=== PATIENT | male | born 1960 | race Caucasian/White ===

== ENCOUNTER 2020-12-09 14:12 | Inpatient (IN) ==
[2020-12-09 14:29] VITALS: BMI 22.1
[2020-12-09 15:31] LABS: BASOPHILS % (AUTO) 0.3 % (0.2-1.0); EOSINOPHILS # (AUTO) 0.1 x10^3/uL (0.0-0.2); EOSINOPHILS % (AUTO) 0.5 % (0.9-2.9); HEMATOCRIT 37.1 % (42.0-54.0); HEMOGLOBIN 12.3 g/dL (13.5-18.0); LYMPHOCYTES # (AUTO) 1.6 X10^3/uL (1.3-2.9); LYMPHOCYTES % (AUTO) 11.8 % (21.0-51.0); MEAN CORPUSCULAR HEMOGLOBIN 27.8 pg (27.0-34.0); MEAN CORPUSCULAR VOLUME 84.1 fL (80.0-100.0); MEAN PLATELET VOLUME 9.2 fL (7.4-11.0); MONOCYTES # (AUTO) 1.3 x10^3/uL (0.3-0.8); MONOCYTES % (AUTO) 9.5 % (0.0-13.0); NEUTROPHILS # (AUTO) 10.8 x10^3/uL (2.2-4.8); NEUTROPHILS % (AUTO) 77.9 % (42.0-75.0); PLATELET COUNT 312 X10^3/uL (150.0-450.0); RED BLOOD COUNT 4.41 X10^6/uL (4.7-6.0); RED CELL DISTRIBUTION WIDTH 16.2 % (11.6-16.5); WHITE BLOOD COUNT 13.9 X10^3/uL (3.6-10.0)
[2020-12-09] MEDS ORDERED: LR 1000 ML IV 1,000 ML IV ONE ×2 (15:49→15:55)
[2020-12-09 15:51] LABS: ALANINE AMINOTRANSFERASE 28 Units/L (12-78); ALBUMIN 2.8 g/dL (3.4-5.0); ALKALINE PHOSPHATASE 120 Units/L (46-116); ASPARTATE AMINO TRANSFERASE 40 Units/L (15-37); BLOOD UREA NITROGEN 40 mg/dL (7-18); CARBON DIOXIDE 32.7 mmol/L (21-32); CHLORIDE 101 mmol/L (98-107); CREATININE 2.14 mg/dL (0.70-1.30); SODIUM 140 mmol/L (136-145); TOTAL PROTEIN 6.4 g/dL (6.4-8.2); TSH (3RD GENERATION) 0.744 uIU/mL (0.358-3.74); eGFR NON BLACK RACES 34 (>60)
[2020-12-09 15:58] LABS: CALCIUM 15.5 mg/dL (8.5-10.1); COR CA(FOR HYPOALB) 16.5 mg/dL (8.5-10.1)
[2020-12-09] MEDS ORDERED: NS 1000 ML 1,000 ML IV ONE ×2 (16:05→17:30)
[2020-12-09] MEDS ORDERED: NS 1000 ML 1,000 ML ONE ×2 (16:06→21:09)
--- NOTE | 2020-12-09 16:22 | DR.GENAD ---
HPI Time Seen Time Seen by Provider: 12/09/20 14:43 PCP Primary Care Physician: DR ZHU HPI Comment HPI Comment: Pt accomnied by .According to pt and her, pt was well before Jun 2020.has noticed hoarseness and problem with swallowing food .has lost approx 50 pounds since jun.has had EGD done .however according to he was more confused today and not been eating and drinking much .she is concerned and brought him to ER for evaluation Complaint/Symptoms Chief Complaint Doctors Comments: weight loss Chief Complaint:: PT C/O OF NOT BEING ABLE TO EAT FOR ABOUT 3 MONTHS EXCEPT DRINKING SOME LIQUIDS BUT FOR PAST WEEK PT HASN'T TAKEN ANYTHING BY MOUTH EXCEPT WATER. PT HAS HAD PERIODS OF DISORIENTATION AND DIZZINESS AND GENERALIZED FATIGUED.PT ALSO HAS C/O FEELING LIKE HE NEEDS TO HAVE A BM BUT HASN'T HAD A NORMAL BM IN 2 MONTHS. Self Treatment fo Chief Complaint: PT STATES THAT HE FEELS FOOD GETS STUCK IN HIS THROAT COVID-19 Coronavirus risk:travel/contact w/high risk person: No Has patient experienced Coronavirus symptoms: No Nurses notes reviewed Nurses Notes Review: Yes Source History Provided: Patient Mode of Arrival Mode of Arrival: Ambulatory Timing Onset of Chief Complaint: 12/09/20 Duration Duration: Since Onset Duration: Weeks Severity Severity: Severe PMH PMH Past Medical History: Yes Past Medical History: Diabetes and Hypertension Past Surgical History: Yes Surgical History: Appendectomy and Cholecystectomy Family History History of Family Medical Conditions: Yes Family Medical History: Hypertension Social History Does patient currently use any type of tobacco product: No Have you used tobacco products in the last 12 months: No How many years tobacco product used: 40 Does any household member use tobacco: No Alcohol Use: Rarely Do you use any recreational Drugs:: No Lives With: Family Lives Where: Home Travel Risk Coronavirus risk:travel/contact w/high risk person: No Has patient experienced Coronavirus symptoms: No Infectious screening In the last 2 months have you had wt loss of >10#?: NO Have you had fever, night sweats or hemotysis?: No Have you traveled outside the country in the last 6 months?: No Isolation: Standard ROS Review of Systems Constitutional: Malaise, Fatigue and Loss of Appetite Eyes: No Symptoms Reported ENTM: No Symptoms Reported Respiratoy: Short of Breath Cardiovascular: No Symptoms Reported Gastrointestinal/Abdominal: Other (weight loss ) Genitourinary: No Symptoms Reported Neurological: Weakness Musculoskeletal: No Symptoms Reported Hematologic/Lymphatic: No Symptoms Reported Endocrine: Unexplained Weight Loss Psychiatric: Anxiety PE Vital Signs Vitals: Temperature 98.8 F Pulse Rate 101 Respiratory Rate 20 Blood Pressure 106/74 O2 Sat by Pulse Oximetry 96 General Limitations: No Limitations General Appearance: Alert and Cachectic Head Head Exam: Atraumatic Eyes Eye exam: PERRL and Other (pallor) ENT ENT Exam: Mucous Membranes Dry Neck Neck Exam: Normal Inspection and Full ROM Chest Chest Inspection: Symmetric Chest Wall Rise Respiratory Respiratory Exam: Bilateral: Crackles and Bilateral: Decreased Breath Sounds Cardiovascular Cardiovascular Exam: Tachycardia, +S1 and +S2 Abdominal Exam Abdominal Exam: Normal Bowel Sounds, Soft and Tenderness Extremities Extremities Exam: Full ROM Neurologic Neurological Exam: Alert and Oriented X3 Psychiatric Psychiatric Exam: Depressed and Flat Affect Skin Skin Exam: Dry and Pallor MDM Additional Information Findings: unexplained weight loss,cachexia,tobacco user COURSE Treatment Treatment: CBC,CMP,TSH ,CXR CT OF HEAD ROR Labs Reviewed Laboratory Results Reviewed?: Yes Result Diagrams: 12/09/20 15:13 12/09/20 15:13 Laboratory: WBC 13.9 X10^3/uL (3.6-10.0) H 12/09/20 15:13 RBC 4.41 X10^6/uL (4.7-6.0) L 12/09/20 15:13 Hgb 12.3 g/dL (13.5-18.0) L 12/09/20 15:13 Hct 37.1 % (42.0-54.0) L 12/09/20 15:13 MCV 84.1 fL (80.0-100.0) 12/09/20 15:13 MCH 27.8 pg (27.0-34.0) 12/09/20 15:13 MCHC 33.0 g/dL (33.0-35.0) 12/09/20 15:13 RDW 16.2 % (11.6-16.5) 12/09/20 15:13 Plt Count 312 X10^3/uL (150.0-450.0) 12/09/20 15:13 MPV 9.2 fL (7.4-11.0) 12/09/20 15:13 Neut % (Auto) 77.9 % (42.0-75.0) H 12/09/20 15:13 Lymph % (Auto) 11.8 % (21.0-51.0) L 12/09/20 15:13 [place] % (Auto) 9.5 % (0.0-13.0) 12/09/20 15:13 Eos % (Auto) 0.5 % (0.9-2.9) L 12/09/20 15:13 Baso % (Auto) 0.3 % (0.2-1.0) 12/09/20 15:13 Neut # (Auto) 10.8 x10^3/uL (2.2-4.8) H 12/09/20 15:13 Lymph # (Auto) 1.6 X10^3/uL (1.3-2.9) 12/09/20 15:13 [place] # (Auto) 1.3 x10^3/uL (0.3-0.8) H 12/09/20 15:13 Eos # (Auto) 0.1 x10^3/uL (0.0-0.2) 12/09/20 15:13 Baso # (Auto) 0.0 X10^3/uL (0.0-0.1) 12/09/20 15:13 Absolute Nucleated RBC 0.0 /100WBC 12/09/20 15:13 Sodium 140 mmol/L (136-145) 12/09/20 15:13 Corrected Sodium TNP 12/09/20 15:13 Potassium 3.2 mmol/L (3.5-5.1) L 12/09/20 15:13 Chloride 101 mmol/L (98-107) 12/09/20 15:13 Carbon Dioxide 32.7 mmol/L (21-32) H 12/09/20 15:13 BUN 40 mg/dL (7-18) H 12/09/20 15:13 Creatinine 2.14 mg/dL (0.70-1.30) H 12/09/20 15:13 Est GFR (MDRD) Af Amer 41 (>60) L 12/09/20 15:13 Est GFR (MDRD) Non-Af 34 (>60) L 12/09/20 15:13 Glucose 84 mg/dL (65-99) 12/09/20 15:13 Calcium 15.5 mg/dL (8.5-10.1) H* 12/09/20 15:13 Corrected Calcium 16.5 mg/dL (8.5-10.1) H 12/09/20 15:13 Total Bilirubin 1.70 mg/dL (0.2-1.0) H 12/09/20 15:13 Direct Bilirubin 0.30 mg/dL (0-0.2) H 12/09/20 15:13 AST 40 Units/L (15-37) H 12/09/20 15:13 ALT 28 Units/L (12-78) 12/09/20 15:13 Alkaline Phosphatase 120 Units/L (46-116) H 12/09/20 15:13 Total Protein 6.4 g/dL (6.4-8.2) 12/09/20 15:13 Albumin 2.8 g/dL (3.4-5.0) L 12/09/20 15:13 Globulin 3.6 g/dL (2.5-4.5) 12/09/20 15:13 Albumin/Globulin Ratio 0.8 Ratio (1.1-2.1) L 12/09/20 15:13 TSH 3rd Generation 0.744 uIU/mL (0.358-3.74) 12/09/20 15:13 HIV-1 Ab Confirm (Blot) Cancelled 12/09/20 15:15 HIV 1&2 Antibody Screen Cancelled 12/09/20 15:15 Other Results Comments: INDIRECT BILI ELEVATED ,HYPOKALEMIA,ACUTE RENAL FAILURE ,HYPERCALCEMIA ,WEIGHT LOSS ,CACHEXIA ,ELEVATED WBC Opioid Opioid Risk Tool Age (Ashish box if 16-45): No History of Preadolescent Sexual Abuse: No Total: 0 Total Score Risk Category: Low Risk Copyright: Adriano ROBLES predicting aberrant behaviors Diagnosis Discharge Problem: Hypercalcemia, Cachexia, Abnormal liver function Acute renal failure Qualifiers: Acute renal failure type: unspecified Qualified Code(s): N17.9 - Acute kidney failure, unspecified Anemia Qualifiers: Anemia type: unspecified type Qualified Code(s): D64.9 - Anemia, unspecified ADDITIONAL NOTES Additional Notes Additional Notes: Pt has hypercalcemia, acute renal failure, cachexia ,hypokalemia ,anemia. spoke with Dr Zhu .Agreed to admit patient
--- NOTE | 2020-12-09 16:23 | CT ---
HISTORYDIZZINESS, FATIGUE, UNABLE TO X 4 DAYS, CONFUSIONSTUDYBRAIN W/O CONCOMPARISONNone available.TECHNIQUEAxial non-contrast images of the head were obtained with coronal and sagittal reformats provided.Radiation dose: 1391.10 mGy-cm total DLPFINDINGSNo abnormal areas of acute attenuation in the brain parenchyma.Bonilla-white differentiation remains intact.No intracranial, extra-axial, fluid collection.No hemorrhage.Mild periventricular chronic microvascular disease.No mass, mass effect or midline shift.Age related brain parenchymal global atrophy.No ventriculomegaly.No acute fracture.Sinuses are well aerated.Mastoid air cells are well aerated.Globes and intra-orbital contents are unremarkable.IMPRESSIONNo acute intracranial abnormality identified.Electronically signed by: Shahid Winters (Dec 09, 2020 16:20:52)
--- NOTE | 2020-12-09 19:02 | RAD ---
HISTORYDIZZINESS, FATIGUE, UNABLE TO X 4 DAYS, CONFUSIONSTUDYCHEST, 1 VIEWCOMPARISONSeptember 2018TECHNIQUEChest radiographic imaging 1 view AP projectionFINDINGSNo cardiomegalyInterval development of mass in the medial aspect of the left upper lobe, abutting the mediastinum, measuring 11.3 x 7.2 cm.No focal infiltrate.No acute osseous abnormality.No pleural effusion.No pneumothorax.Soft tissues are unremarkable.No acute osseous abnormality.IMPRESSIONInterval development of mass in the medial aspect of the left upper lobe, abutting the mediastinum, measuring 11.3 x 7.2 cm. Recommend a chest CT with contrast for further characterization.Electronically signed by: Shahid Winters (Dec 09, 2020 18:59:52)
[2020-12-09 20:06] LABS: BLOOD UREA NITROGEN 38 mg/dL (7-18); CARBON DIOXIDE 33.6 mmol/L (21-32); CHLORIDE 105 mmol/L (98-107); CREATININE 1.95 mg/dL (0.70-1.30); SODIUM 143 mmol/L (136-145); eGFR NON BLACK RACES 38 (>60)
[2020-12-09 20:15] LABS: CALCIUM 14.3 mg/dL (8.5-10.1)
[2020-12-09] MEDS: NS 1000 ML 1,000 ML IV SCH (21:30)
--- NOTE | 2020-12-09 21:34 | RAD ---
HISTORYUNINTENTIONAL WEIGHT LOSS, CONSTIPATION Relevant Clinical InformationSTUDYACUTE ABDOMEN SERIESCOMPARISONChest radiograph 12/09/2020FINDINGSThe trachea is midline. The cardiac silhouette is [unremarkable]. [Medial left upper lobe mass abutting the mediastinum again noted. The right lung is clear. No pleural effusion or pneumothorax.] [The bony thorax is unremarkable].Flat plate and upright evaluation of the abdomen demonstrates a [normal bowel gas pattern]. There is a moderate amount of fecal material throughout the colon. There are multiple surgical clips in the right upper quadrant. There is a single surgical clip in the left pelvis. There is no pneumoperitoneum. No pathological soft tissue mass or calcification can be observed. The bony structures are grossly intact.IMPRESSION1. [Left upper lobe mass]2. [No evidence for acute abdominal pathology identified.]Electronically signed by: Ronald Duran (Dec 09, 2020 21:31:56)
[2020-12-10] MEDS: NS 1000 ML 1,000 ML IV SCH ×4 (04:45→23:08)
[2020-12-10 06:51] LABS: BASOPHILS # (AUTO) 0.1 X10^3/uL (0.0-0.1); BASOPHILS % (AUTO) 0.7 % (0.2-1.0); EOSINOPHILS # (AUTO) 0.1 x10^3/uL (0.0-0.2); EOSINOPHILS % (AUTO) 0.7 % (0.9-2.9); HEMOGLOBIN 11.8 g/dL (13.5-18.0); LYMPHOCYTES # (AUTO) 1.2 X10^3/uL (1.3-2.9); MEAN CORPUSCULAR HEMOGLOBIN 27.8 pg (27.0-34.0); MEAN CORPUSCULAR HGB CONC 32.8 g/dL (33.0-35.0); MEAN CORPUSCULAR VOLUME 84.9 fL (80.0-100.0); MEAN PLATELET VOLUME 10.3 fL (7.4-11.0); MONOCYTES % (AUTO) 8.7 % (0.0-13.0); NEUTROPHILS # (AUTO) 9.5 x10^3/uL (2.2-4.8); NEUTROPHILS % (AUTO) 79.9 % (42.0-75.0); PLATELET COUNT 255 X10^3/uL (150.0-450.0); RED BLOOD COUNT 4.24 X10^6/uL (4.7-6.0); RED CELL DISTRIBUTION WIDTH 16.2 % (11.6-16.5); WHITE BLOOD COUNT 11.9 X10^3/uL (3.6-10.0)
[2020-12-10 07:07] LABS: ALANINE AMINOTRANSFERASE 26 Units/L (12-78); ALBUMIN 2.7 g/dL (3.4-5.0); ALKALINE PHOSPHATASE 116 Units/L (46-116); ASPARTATE AMINO TRANSFERASE 32 Units/L (15-37); BLOOD UREA NITROGEN 35 mg/dL (7-18); CARBON DIOXIDE 29.8 mmol/L (21-32); CHLORIDE 105 mmol/L (98-107); COR CA(FOR HYPOALB) 15.3 mg/dL (8.5-10.1); CREATININE 1.85 mg/dL (0.70-1.30); SODIUM 144 mmol/L (136-145); TOTAL PROTEIN 6.3 g/dL (6.4-8.2); eGFR NON BLACK RACES 40 (>60)
[2020-12-10 07:20] LABS: CALCIUM 14.3 mg/dL (8.5-10.1)
[2020-12-10] MEDS ORDERED: POTASSIUM CHL 60 MEQ/NS 0.45% 500 ML IV PRN (08:53)
[2020-12-10] MEDS ORDERED: MICRO K EXTEN CAP 10 MEQ PO PRN (08:53)
[2020-12-10] MEDS ORDERED: POTASSIUM CHLORIDE LIQ 20 MEQ UDC PO PRN (08:53)
[2020-12-10] MEDS ORDERED: KLOR-CON PO PRN (08:53)
[2020-12-10] MEDS ORDERED: K-DUR TAB 20 MEQ PO PRN (08:53)
[2020-12-10] MEDS ORDERED: POTASSIUM CHL 40 MEQ/NS 0.45% 500 ML IV PRN (08:53)
[2020-12-10] MEDS: K-RIDER 10 MEQ/NS 100 ML 10 MEQ/100 ML BAG IV PRN ×4 (09:49→18:08)
[2020-12-10] MEDS ORDERED: NS 500 ML IV 500 ML with AREDIA 90 MG IV ONE ×2 (10:00)
[2020-12-10] MEDS ORDERED: COLACE CAP 100 MG PO STA (12:58)
[2020-12-10] MEDS: MAGNESIUM SULFATE 1 GRAM/100 mL PREMIX 1 GM/100 ML BAG IV PRN ×2 (15:08→16:51)
[2020-12-10] MEDS ORDERED: COLACE CAP 100 MG PO ONE (15:13)
[2020-12-11 05:01] LABS: BASOPHILS # (AUTO) 0.1 X10^3/uL (0.0-0.1); BASOPHILS % (AUTO) 0.5 % (0.2-1.0); EOSINOPHILS # (AUTO) 0.1 x10^3/uL (0.0-0.2); EOSINOPHILS % (AUTO) 0.9 % (0.9-2.9); HEMATOCRIT 33.9 % (42.0-54.0); HEMOGLOBIN 11.2 g/dL (13.5-18.0); LYMPHOCYTES # (AUTO) 1.1 X10^3/uL (1.3-2.9); MEAN CORPUSCULAR HEMOGLOBIN 27.9 pg (27.0-34.0); MEAN CORPUSCULAR VOLUME 84.5 fL (80.0-100.0); MEAN PLATELET VOLUME 9.8 fL (7.4-11.0); MONOCYTES # (AUTO) 0.9 x10^3/uL (0.3-0.8); MONOCYTES % (AUTO) 8.4 % (0.0-13.0); NEUTROPHILS % (AUTO) 80.2 % (42.0-75.0); PLATELET COUNT 277 X10^3/uL (150.0-450.0); RED BLOOD COUNT 4.01 X10^6/uL (4.7-6.0); RED CELL DISTRIBUTION WIDTH 16.5 % (11.6-16.5); WHITE BLOOD COUNT 11.2 X10^3/uL (3.6-10.0)
[2020-12-11] MEDS: NS 1000 ML 1,000 ML IV SCH (05:21)
[2020-12-11 05:22] LABS: ALANINE AMINOTRANSFERASE 26 Units/L (12-78); ALBUMIN 2.5 g/dL (3.4-5.0); ALKALINE PHOSPHATASE 116 Units/L (46-116); ASPARTATE AMINO TRANSFERASE 28 Units/L (15-37); BLOOD UREA NITROGEN 27 mg/dL (7-18); CARBON DIOXIDE 31.5 mmol/L (21-32); CHLORIDE 108 mmol/L (98-107); COR CA(FOR HYPOALB) 15.2 mg/dL (8.5-10.1); CREATININE 1.61 mg/dL (0.70-1.30); MAGNESIUM 1.9 mg/dL (1.7-2.9); SODIUM 148 mmol/L (136-145); TOTAL PROTEIN 5.9 g/dL (6.4-8.2); eGFR NON BLACK RACES 47 (>60)
[2020-12-11] MEDS: MAGNESIUM SULFATE 1 GRAM/100 mL PREMIX 1 GM/100 ML BAG IV PRN ×2 (05:53→11:29)
[2020-12-11] MEDS: LINZESS PO SCH (09:09)
[2020-12-11] MEDS: MIACALCIN INJ SC SCH ×2 (09:09→20:13)
[2020-12-11] MEDS: MIRALAX POWDER (1 DOSE 17 G) PO SCH ×2 (11:03→20:12)
[2020-12-11] MEDS: COLACE CAP 100 MG PO SCH ×2 (11:03→20:12)
[2020-12-11] MEDS: LR 1000 ML IV 1,000 ML IV SCH ×3 (11:03→17:58)
[2020-12-11] MEDS ORDERED: VSL#3 ONE (19:58)
[2020-12-12] MEDS: LR 1000 ML IV 1,000 ML IV SCH ×5 (00:35→20:34)
[2020-12-12 06:02] LABS: BASOPHILS % (AUTO) 0.1 % (0.2-1.0); EOSINOPHILS # (AUTO) 0.1 x10^3/uL (0.0-0.2); EOSINOPHILS % (AUTO) 1.3 % (0.9-2.9); HEMOGLOBIN 11.1 g/dL (13.5-18.0); LYMPHOCYTES # (AUTO) 0.8 X10^3/uL (1.3-2.9); LYMPHOCYTES % (AUTO) 7.8 % (21.0-51.0); MEAN CORPUSCULAR HEMOGLOBIN 28.5 pg (27.0-34.0); MEAN CORPUSCULAR HGB CONC 33.5 g/dL (33.0-35.0); MEAN CORPUSCULAR VOLUME 85.1 fL (80.0-100.0); MEAN PLATELET VOLUME 10.3 fL (7.4-11.0); MONOCYTES # (AUTO) 0.7 x10^3/uL (0.3-0.8); MONOCYTES % (AUTO) 6.1 % (0.0-13.0); NEUTROPHILS # (AUTO) 9.1 x10^3/uL (2.2-4.8); NEUTROPHILS % (AUTO) 84.7 % (42.0-75.0); PLATELET COUNT 217 X10^3/uL (150.0-450.0); RED BLOOD COUNT 3.88 X10^6/uL (4.7-6.0); RED CELL DISTRIBUTION WIDTH 16.6 % (11.6-16.5); WHITE BLOOD COUNT 10.8 X10^3/uL (3.6-10.0)
[2020-12-12 06:15] LABS: ALANINE AMINOTRANSFERASE 23 Units/L (12-78); ALBUMIN 2.4 g/dL (3.4-5.0); ALKALINE PHOSPHATASE 115 Units/L (46-116); ASPARTATE AMINO TRANSFERASE 29 Units/L (15-37); BLOOD UREA NITROGEN 19 mg/dL (7-18); CALCIUM 11.7 mg/dL (8.5-10.1); CARBON DIOXIDE 30.3 mmol/L (21-32); CHLORIDE 107 mmol/L (98-107); CREATININE 1.43 mg/dL (0.70-1.30); SODIUM 145 mmol/L (136-145); TOTAL PROTEIN 5.7 g/dL (6.4-8.2); eGFR NON BLACK RACES 54 (>60)
[2020-12-12] MEDS: MAGNESIUM SULFATE 1 GRAM/100 mL PREMIX 1 GM/100 ML BAG IV PRN (06:44)
[2020-12-12] MEDS: COLACE CAP 100 MG PO SCH ×2 (08:30→20:34)
[2020-12-12] MEDS: MIRALAX POWDER (1 DOSE 17 G) PO SCH ×2 (08:31→20:35)
[2020-12-12] MEDS: LINZESS PO SCH (08:31)
[2020-12-12] MEDS: MIACALCIN INJ SC SCH ×2 (10:00→20:35)
[2020-12-12] MEDS: MAGNESIUM SULFATE 1 GRAM/100 mL PREMIX 4 G/400 ML BAG IV SCH ×5 (10:18→13:15)
[2020-12-12] MEDS: K-DUR TAB 20 MEQ PO SCH ×3 (10:30→21:45)
[2020-12-12] MEDS ORDERED: K-DUR TAB 20 MEQ PO ONE (19:36)
[2020-12-13] MEDS: LR 1000 ML IV 1,000 ML IV SCH ×3 (01:05→10:56)
[2020-12-13 05:07] LABS: BASOPHILS % (AUTO) 0.2 % (0.2-1.0); EOSINOPHILS # (AUTO) 0.1 x10^3/uL (0.0-0.2); EOSINOPHILS % (AUTO) 1.1 % (0.9-2.9); HEMATOCRIT 33.7 % (42.0-54.0); HEMOGLOBIN 11.3 g/dL (13.5-18.0); LYMPHOCYTES # (AUTO) 1.3 X10^3/uL (1.3-2.9); LYMPHOCYTES % (AUTO) 10.9 % (21.0-51.0); MEAN CORPUSCULAR HGB CONC 33.5 g/dL (33.0-35.0); MEAN CORPUSCULAR VOLUME 83.6 fL (80.0-100.0); MEAN PLATELET VOLUME 9.3 fL (7.4-11.0); MONOCYTES % (AUTO) 8.7 % (0.0-13.0); NEUTROPHILS # (AUTO) 9.3 x10^3/uL (2.2-4.8); NEUTROPHILS % (AUTO) 79.1 % (42.0-75.0); PLATELET COUNT 258 X10^3/uL (150.0-450.0); RED BLOOD COUNT 4.03 X10^6/uL (4.7-6.0); RED CELL DISTRIBUTION WIDTH 16.5 % (11.6-16.5); WHITE BLOOD COUNT 11.8 X10^3/uL (3.6-10.0)
[2020-12-13] MEDS: K-DUR TAB 20 MEQ PO SCH (05:18)
[2020-12-13 05:19] LABS: ALANINE AMINOTRANSFERASE 22 Units/L (12-78); ALBUMIN 2.4 g/dL (3.4-5.0); ALKALINE PHOSPHATASE 121 Units/L (46-116); ASPARTATE AMINO TRANSFERASE 25 Units/L (15-37); BLOOD UREA NITROGEN 13 mg/dL (7-18); CALCIUM 10.3 mg/dL (8.5-10.1); CARBON DIOXIDE 28.8 mmol/L (21-32); CHLORIDE 107 mmol/L (98-107); COR CA(FOR HYPOALB) 11.6 mg/dL (8.5-10.1); CREATININE 1.21 mg/dL (0.70-1.30); MAGNESIUM 1.8 mg/dL (1.7-2.9); SODIUM 145 mmol/L (136-145); TOTAL PROTEIN 5.6 g/dL (6.4-8.2); eGFR NON BLACK RACES > 60 (>60)
[2020-12-13] MEDS: MAGNESIUM SULFATE 1 GRAM/100 mL PREMIX 1 GM/100 ML BAG IV PRN ×2 (05:30→09:46)
[2020-12-13] MEDS ORDERED: LINZESS PO SCH (09:00)
[2020-12-13] MEDS: COLACE CAP 100 MG PO SCH (09:43)
[2020-12-13] MEDS: MIRALAX POWDER (1 DOSE 17 G) PO SCH (09:43)
[2020-12-13] MEDS: LINZESS PO SCH (09:43)
[2020-12-13 12:13] VITALS: BP 124/80
== END 2020-12-13 12:15 | disposition home or self-care (01) | DRG 641 ==
LOC: ER 14:16 → MED/SURG 17:02
PROVIDERS: ADMIT Obstetrics & Gynecology Obstetrics; ATTEND Obstetrics & Gynecology Obstetrics
DX: D72.828 Other elevated white blood cell count; R63.4 Abnormal weight loss; R42 Dizziness and giddiness; R13.11 Dysphagia, oral phase; Z20.822 Contact with and (suspected) exposure to COVID-19; R41.82 Altered mental status, unspecified; N17.8 Other acute kidney failure; E80.6 Other disorders of bilirubin metabolism; E83.52 Hypercalcemia; D64.89 Other specified anemias; E11.65 Type 2 diabetes mellitus with hyperglycemia; C34.12 Malignant neoplasm of upper lobe, left bronchus or lung; E86.0 Dehydration; K59.09 Other constipation

== ENCOUNTER 2021-02-07 12:45 | Inpatient (IN) ==
[2021-02-07] MEDS ORDERED: NS 1000 ML 1,000 ML IV ONE ×2 (14:14→16:49)
[2021-02-07] MEDS ORDERED: NS 1000 ML 1,000 ML ONE ×2 (14:19→16:41)
--- NOTE | 2021-02-07 14:24 | DR.DIZZY ---
HPI Time seen Time Seen by Provider: 02/07/21 14:07 HPI Comment HPI Comment: A 60 y/ male presenting with spouse providing information of poor oral intake, progressive weakness, general functional decline, weight loss and falls in the past several weeks. He was recently diagnosed with lung Ca. He has had lung bx., and is s/p RT. He is scheduled to begin Chemo shortly. He was s,oking cigarettes until recently. He denies SOB. Complaint Chief Complaint:: states pt has lung cancer. She states he has had a decline over the last week. He has had weight loss, decreased appetite, low O2 level. Pt has been treated twice in the last 2 months for high calcium level. Pt has fallen three times in three weeks. COVID-19 Coronavirus risk:travel/contact w/high risk person: No Has patient experienced Coronavirus symptoms: No Nurses Notes Reviewed Nurses Notes Review: Yes Source History Provided: Significant Other Timing Onset of Chief Complaint: 02/03/21 Came on: Gradually Location of Weakness Weakness Location: Generalized Context Onset: At rest Does pt take pot. toxic medication?: No Stroke Symptoms: None Severity Severity: Abnormal activity level Modifying factors Worsens: Nothing Associated signs and symptoms Associated Signs and Symptoms: Weak PMH PMH Past Medical History: Yes Past Medical History: COPD, Diabetes and Hypertension Past Medical History Comment: lung cancer Past Surgical History: Yes Surgical History: Appendectomy, Cholecystectomy and Ortho Surgery Past Surgical History Comment: endoscopy, lung biopsy Family History History of Family Medical Conditions: Yes Family Medical History: Diabetes Mellitus and Hypertension Social History Does patient currently use any type of tobacco product: No Have you used tobacco products in the last 12 months: No Type of Tobacco Use: Cigarettes Does any household member use tobacco: No Alcohol Use: None Do you use any recreational Drugs:: No Lives With: Family Lives Where: Home Travel Risk Coronavirus risk:travel/contact w/high risk person: No Has patient experienced Coronavirus symptoms: No Infectious screening In the last 2 months have you had wt loss of >10#?: NO Have you had fever, night sweats or hemotysis?: No Have you traveled outside the country in the last 6 months?: No Isolation: Standard ROS Review of Systems Constitutional: Malaise and Weakness Eyes: No Symptoms Reported ENTM: No Symptoms Reported Respiratoy: No Symptoms Reported Cardiovascular: No Symptoms Reported Gastrointestinal/Abdominal: Other (poor appetite) Genitourinary: No Symptoms Reported Neurological: Weakness Musculoskeletal: No Symptoms Reported Integumentary: No Symptoms Reported Hematologic/Lymphatic: No Symptoms Reported Endocrine: No Symptoms Reported Psychiatric: No Symptoms Reported PE Vital Signs Vitals: Temperature 98.1 F Pulse Rate 79 Respiratory Rate 16 Blood Pressure [Left Arm] 98/72 Blood Pressure 103/67 O2 Sat by Pulse Oximetry 98 General Limitations: No Limitations General Appearance: Alert, In No Apparent Distress, Lethargic and Cachectic Head Head Exam: Normal Inspection, Atraumatic, Normocephalic and Other (there's a vertically oriented abrasion over his Rt. forehead) Eyes Eye exam: Normal Appearance and EOMI ENT ENT Exam: Normal Exam, Normal Oropharynx, Normal External Ear Exam and TM's Normal Bilaterally Neck Neck Exam: Normal Inspection, Full ROM and Trachea Midline Chest Chest Inspection: Normal Inspection and Symmetric Chest Wall Rise Respiratory Respiratory Exam: Normal Lung Sounds Bilat Cardiovascular Cardiovascular Exam: Regular Rate, Normal Rhythm, Normal Heart Sounds, +S1 and +S2 Abdominal Exam Abdominal Exam: Normal Inspection, Normal Bowel Sounds and Soft Rectal Rectal Exam: Deferred Extremeties Extremities Exam: Normal Inspection and Full ROM Back Back Exam: Normal Inspection and Full ROM Neurologic Neurological Exam: Alert Patient Oriented To: Person and Place Psychiatric Psychiatric Exam: Normal Affect and Normal Mood Skin Skin Exam: Intact COURSE Reevaluation 1st: Unchanged Education/Counseling Education/Counseling: Patient, Family, Education and Counseling Educated On: Treatment, Diagnosis, Prognosis and Needs for Follow Up ROR Labs Reviewed Result Diagrams: 02/07/21 14:30 02/07/21 14:30 Laboratory: WBC 17.1 X10^3/uL (3.6-10.0) H 02/07/21 14:30 RBC 4.40 X10^6/uL (4.7-6.0) L 02/07/21 14:30 Hgb 12.0 g/dL (13.5-18.0) L 02/07/21 14:30 Hct 36.0 % (42.0-54.0) L 02/07/21 14:30 MCV 81.8 fL (80.0-100.0) 02/07/21 14:30 MCH 27.4 pg (27.0-34.0) 02/07/21 14:30 MCHC 33.5 g/dL (33.0-35.0) 02/07/21 14:30 RDW 15.6 % (11.6-16.5) 02/07/21 14:30 Plt Count 246 X10^3/uL (150.0-450.0) 02/07/21 14:30 Plt Count Comment Adequate (ADEQUATE) 02/07/21 14:30 MPV 9.0 fL (7.4-11.0) 02/07/21 14:30 Neut % (Auto) 92.7 % (42.0-75.0) H 02/07/21 14:30 Lymph % (Auto) 1.4 % (21.0-51.0) L 02/07/21 14:30 [place] % (Auto) 5.5 % (0.0-13.0) 02/07/21 14:30 Eos % (Auto) 0.1 % (0.9-2.9) L 02/07/21 14:30 Baso % (Auto) 0.3 % (0.2-1.0) 02/07/21 14:30 Neut # (Auto) 15.9 x10^3/uL (2.2-4.8) H 02/07/21 14:30 Lymph # (Auto) 0.2 X10^3/uL (1.3-2.9) L 02/07/21 14:30 [place] # (Auto) 0.9 x10^3/uL (0.3-0.8) H 02/07/21 14:30 Eos # (Auto) 0.0 x10^3/uL (0.0-0.2) 02/07/21 14:30 Baso # (Auto) 0.0 X10^3/uL (0.0-0.1) 02/07/21 14:30 Absolute Nucleated RBC 0.0 /100WBC 02/07/21 14:30 Total Counted 100 02/07/21 14:30 Neutrophils % (Manual) 88 % (39-76) H 02/07/21 14:30 Band Neutrophils % 3 % (0-10) 02/07/21 14:30 Lymphocytes % (Manual) 4 % (13-43) L 02/07/21 14:30 Monocytes % (Manual) 4 % (4-9) 02/07/21 14:30 Eosinophils % (Manual) 1 % (0-6) 02/07/21 14:30 Plt Morphology Comment Normal (NORMAL) 02/07/21 14:30 RBC Morphology Normal (NORMAL) 02/07/21 14:30 Sodium 138 mmol/L (136-145) 02/07/21 14:30 Corrected Sodium TNP 02/07/21 14:30 Potassium 3.0 mmol/L (3.5-5.1) L* 02/07/21 14:30 Chloride 101 mmol/L (98-107) 02/07/21 14:30 Carbon Dioxide 31.6 mmol/L (21-32) 02/07/21 14:30 BUN 31 mg/dL (7-18) H 02/07/21 14:30 Creatinine 0.94 mg/dL (0.70-1.30) 02/07/21 14:30 Est GFR (MDRD) Af Amer > 60 (>60) 02/07/21 14:30 Est GFR (MDRD) Non-Af > 60 (>60) 02/07/21 14:30 Glucose 92 mg/dL (65-99) 02/07/21 14:30 Calcium 16.8 mg/dL (8.5-10.1) H* 02/07/21 14:30 Corrected Calcium 18.2 mg/dL (8.5-10.1) H 02/07/21 14:30 Total Bilirubin 2.30 mg/dL (0.2-1.0) H 02/07/21 14:30 AST 63 Units/L (15-37) H 02/07/21 14:30 ALT 22 Units/L (12-78) 02/07/21 14:30 Alkaline Phosphatase 214 Units/L (46-116) H 02/07/21 14:30 Total Protein 6.3 g/dL (6.4-8.2) L 02/07/21 14:30 Albumin 2.3 g/dL (3.4-5.0) L 02/07/21 14:30 Globulin 4.0 g/dL (2.5-4.5) 02/07/21 14:30 Albumin/Globulin Ratio 0.6 Ratio (1.1-2.1) L 02/07/21 14:30 SARS-CoV-2 (PCR) Negative (NEGATIVE) 02/07/21 17:25 Influenza Type A (PCR) Negative (NEGATIVE) 02/07/21 17:25 Influenza Type B (PCR) Negative (NEGATIVE) 02/07/21 17:25 RSV (PCR) Negative (NEGATIVE) 02/07/21 17:25 Opioid Opioid Risk Tool Age (Ashish box if 16-45): No History of Preadolescent Sexual Abuse: No Total: 0 Total Score Risk Category: Low Risk Copyright: Adriano ROBLES predicting aberrant behaviors Diagnosis Discharge Problem: Hypercalcemia, Azotemia, Hypokalemia, Neutrophilic leukocytosis, Adult failure to thrive Hypotension Qualifiers: Hypotension type: unspecified hypotension type Qualified Code(s): I95.9 - Hypotension, unspecified
--- NOTE | 2021-02-07 14:37 | RAD ---
HISTORYWeakness, lung cancerSTUDYChest AP [id number]/12/2021, CT chest 12/29/2020FINDINGSHeart is within normal limits in size. Right hilum is normal. Once again noted is the patient's large left hilar mass with some associated adjacent atelectasis in the left upper lobe. It is unchanged in appearance from the prior examination. Remainder of the lung hudson are clear. A linear density paralleling the left chest wall is likely a skin fold artifact. No pleural effusions are identified. Bony thorax is unremarkable.IMPRESSIONNo change left hilar mass with adjacent left upper lobe atelectasis when compared to the prior examinationElectronically signed by: DEVEN WAGGONER (Feb 07, 2021 14:34:40)
[2021-02-07 14:39] LABS: BASOPHILS % (AUTO) 0.3 % (0.2-1.0); EOSINOPHILS % (AUTO) 0.1 % (0.9-2.9); LYMPHOCYTES # (AUTO) 0.2 X10^3/uL (1.3-2.9); LYMPHOCYTES % (AUTO) 1.4 % (21.0-51.0); MEAN CORPUSCULAR HEMOGLOBIN 27.4 pg (27.0-34.0); MEAN CORPUSCULAR HGB CONC 33.5 g/dL (33.0-35.0); MEAN CORPUSCULAR VOLUME 81.8 fL (80.0-100.0); MONOCYTES # (AUTO) 0.9 x10^3/uL (0.3-0.8); MONOCYTES % (AUTO) 5.5 % (0.0-13.0); NEUTROPHILS # (AUTO) 15.9 x10^3/uL (2.2-4.8); NEUTROPHILS % (AUTO) 92.7 % (42.0-75.0); PLATELET COUNT 246 X10^3/uL (150.0-450.0); RED CELL DISTRIBUTION WIDTH 15.6 % (11.6-16.5); WHITE BLOOD COUNT 17.1 X10^3/uL (3.6-10.0)
[2021-02-07 14:55] LABS: ALANINE AMINOTRANSFERASE 22 Units/L (12-78); ALBUMIN 2.3 g/dL (3.4-5.0); ALKALINE PHOSPHATASE 214 Units/L (46-116); ASPARTATE AMINO TRANSFERASE 63 Units/L (15-37); BLOOD UREA NITROGEN 31 mg/dL (7-18); CARBON DIOXIDE 31.6 mmol/L (21-32); CHLORIDE 101 mmol/L (98-107); CREATININE 0.94 mg/dL (0.70-1.30); SODIUM 138 mmol/L (136-145); TOTAL PROTEIN 6.3 g/dL (6.4-8.2); eGFR NON BLACK RACES > 60 (>60)
[2021-02-07 14:58] LABS: BAND NEUTROPHILS % 3 % (0-10); CALCIUM 16.8 mg/dL (8.5-10.1); COR CA(FOR HYPOALB) 18.2 mg/dL (8.5-10.1); PLATELET MORPHOLOGY COMMENT NORMAL (NORMAL)
[2021-02-07] MEDS ORDERED: DOPAMINE IV PREMIX 400 MG/250 ML 400 MG/250 ML BAG IV PRN (18:05)
[2021-02-07] MEDS ORDERED: K-DUR TAB 20 MEQ PO ONE ×2 (18:10→18:16)
[2021-02-07] MEDS ORDERED: NS + KCL 20 MEQ/L 1,000 ML IV ONE (18:22)
[2021-02-07] MEDS: NS + KCL 20 MEQ/L 1,000 ML IV SCH (18:31)
[2021-02-07] MEDS ORDERED: PATIENT'S HOME MEDICATION (Oxycodone-Acetaminophen 10-325 mg tablet) PO PRN (19:16)
[2021-02-07] MEDS ORDERED: ZOFRAN TAB 4 MG PO PRN (19:16)
[2021-02-07] MEDS ORDERED: PROVENTIL NEB TX 0.083% 2.5MG/ 3ML ONE (19:28)
[2021-02-07 19:50] LABS: BILIRUBIN,URINE NEGATIVE (NEGATIVE); BLOOD/HEMOGLOBIN,URINE NEGATIVE (NEGATIVE); GLUCOSE, URINE NEGATIVE (NEGATIVE); KETONES,URINE 2+ (NEGATIVE); LEUKOCYTE ESTERASE ,URINE NEGATIVE (NEGATIVE); NITRITES,URINE NEGATIVE (NEGATIVE); PROTEIN,URINE 1+ (NEGATIVE); UROBILINOGEN,URINE NORMAL (NORMAL)
[2021-02-07 20:10] LABS: APPEARANCE,URINE CLEAR (CLEAR); COLOR,URINE YELLOW (YELLOW)
[2021-02-07 20:11] LABS: BACTERIA,URINE TRACE /HPF (NEGATIVE); HYALINE CASTS, URINE FEW /LPF (NEGATIVE); RBC,URINE NONE SEEN /HPF (0-3); SQUAMOUS EPITHELIAL CELL,UR FEW /HPF (NEGATIVE)
[2021-02-07] MEDS: PERCOCET TAB 5/325 MG PO PRN (20:28)
[2021-02-07] MEDS: Atrovent NEB TX 0.02% NEB SCH (22:00)
[2021-02-07] MEDS: PROVENTIL NEB TX 0.083% 2.5MG/ 3ML NEB SCH (22:00)
[2021-02-07 23:22] VITALS: BMI 18.6
[2021-02-08 06:48] LABS: BASOPHILS # (AUTO) 0.1 X10^3/uL (0.0-0.1); BASOPHILS % (AUTO) 0.4 % (0.2-1.0); EOSINOPHILS # (AUTO) 0.1 x10^3/uL (0.0-0.2); EOSINOPHILS % (AUTO) 0.6 % (0.9-2.9); HEMATOCRIT 31.4 % (42.0-54.0); HEMOGLOBIN 10.4 g/dL (13.5-18.0); LYMPHOCYTES # (AUTO) 0.3 X10^3/uL (1.3-2.9); LYMPHOCYTES % (AUTO) 2.2 % (21.0-51.0); MEAN CORPUSCULAR HEMOGLOBIN 27.6 pg (27.0-34.0); MEAN CORPUSCULAR HGB CONC 33.2 g/dL (33.0-35.0); MEAN CORPUSCULAR VOLUME 83.3 fL (80.0-100.0); MEAN PLATELET VOLUME 9.7 fL (7.4-11.0); MONOCYTES % (AUTO) 6.7 % (0.0-13.0); NEUTROPHILS % (AUTO) 90.1 % (42.0-75.0); PLATELET COUNT 210 X10^3/uL (150.0-450.0); RED BLOOD COUNT 3.77 X10^6/uL (4.7-6.0); RED CELL DISTRIBUTION WIDTH 15.7 % (11.6-16.5); WHITE BLOOD COUNT 14.4 X10^3/uL (3.6-10.0)
[2021-02-08] MEDS: NS + KCL 20 MEQ/L 1,000 ML IV SCH ×2 (06:50→21:04)
[2021-02-08 06:57] LABS: ALANINE AMINOTRANSFERASE 18 Units/L (12-78); ALBUMIN 2.1 g/dL (3.4-5.0); ALKALINE PHOSPHATASE 187 Units/L (46-116); ASPARTATE AMINO TRANSFERASE 56 Units/L (15-37); BLOOD UREA NITROGEN 30 mg/dL (7-18); CARBON DIOXIDE 32.2 mmol/L (21-32); CHLORIDE 108 mmol/L (98-107); SODIUM 144 mmol/L (136-145); TOTAL PROTEIN 5.5 g/dL (6.4-8.2); eGFR NON BLACK RACES > 60 (>60)
[2021-02-08 07:19] LABS: COR CA(FOR HYPOALB) 17.4 mg/dL (8.5-10.1)
[2021-02-08 07:20] LABS: CALCIUM 15.9 mg/dL (8.5-10.1)
[2021-02-08 07:23] LABS: BAND NEUTROPHILS % 6 % (0-10)
[2021-02-08 07:24] LABS: PLATELET MORPHOLOGY COMMENT NORMAL (NORMAL)
[2021-02-08] MEDS ORDERED: POTASSIUM CHL 40 MEQ/NS 0.45% 500 ML IV PRN (07:32)
[2021-02-08] MEDS ORDERED: K-RIDER 10 MEQ/NS 100 ML 10 MEQ/100 ML BAG IV PRN (07:32)
[2021-02-08] MEDS ORDERED: POTASSIUM CHLORIDE LIQ 20 MEQ UDC PO PRN (07:32)
[2021-02-08] MEDS ORDERED: KLOR-CON PO PRN (07:32)
[2021-02-08] MEDS ORDERED: K-DUR TAB 20 MEQ PO PRN (07:32)
[2021-02-08] MEDS ORDERED: MICRO K EXTEN CAP 10 MEQ PO PRN (07:32)
[2021-02-08] MEDS: MIACALCIN INJ SC SCH ×2 (08:47→20:43)
[2021-02-08] MEDS: ASPIRIN EC 81 MG PO SCH (08:47)
[2021-02-08] MEDS: COLACE CAP 100 MG PO SCH (08:47)
[2021-02-08] MEDS: PROTONIX TAB 40 MG PO SCH (08:47)
[2021-02-08] MEDS: PERCOCET TAB 5/325 MG PO PRN ×2 (08:58→17:53)
[2021-02-08] MEDS ORDERED: MIACALCIN INJ SC SCH (09:00)
[2021-02-08] MEDS: PROVENTIL NEB TX 0.083% 2.5MG/ 3ML NEB SCH ×4 (09:15→20:50)
[2021-02-08] MEDS: Atrovent NEB TX 0.02% NEB SCH ×4 (09:15→20:50)
[2021-02-08] MEDS ORDERED: MAGNESIUM SULFATE 1 GRAM/100 mL PREMIX 2 G/200 ML BAG IV ONE (10:20)
[2021-02-08] MEDS: MAGNESIUM SULFATE 1 GRAM/100 mL PREMIX 1 GM/100 ML BAG IV PRN ×2 (10:31→11:47)
[2021-02-08] MEDS: POTASSIUM CHL 60 MEQ/NS 0.45% 500 ML IV PRN (12:49)
[2021-02-09] MEDS: NS + KCL 20 MEQ/L 1,000 ML IV SCH ×3 (06:03→21:48)
[2021-02-09 06:21] LABS: BASOPHILS # (AUTO) 0.1 X10^3/uL (0.0-0.1); BASOPHILS % (AUTO) 0.3 % (0.2-1.0); EOSINOPHILS % (AUTO) 0.3 % (0.9-2.9); HEMATOCRIT 30.1 % (42.0-54.0); HEMOGLOBIN 10.1 g/dL (13.5-18.0); LYMPHOCYTES # (AUTO) 0.2 X10^3/uL (1.3-2.9); LYMPHOCYTES % (AUTO) 1.2 % (21.0-51.0); MEAN CORPUSCULAR HEMOGLOBIN 27.6 pg (27.0-34.0); MEAN CORPUSCULAR HGB CONC 33.4 g/dL (33.0-35.0); MEAN CORPUSCULAR VOLUME 82.7 fL (80.0-100.0); MEAN PLATELET VOLUME 10.1 fL (7.4-11.0); MONOCYTES # (AUTO) 0.8 x10^3/uL (0.3-0.8); MONOCYTES % (AUTO) 5.2 % (0.0-13.0); NEUTROPHILS # (AUTO) 14.6 x10^3/uL (2.2-4.8); PLATELET COUNT 214 X10^3/uL (150.0-450.0); RED BLOOD COUNT 3.64 X10^6/uL (4.7-6.0); RED CELL DISTRIBUTION WIDTH 15.7 % (11.6-16.5); WHITE BLOOD COUNT 15.7 X10^3/uL (3.6-10.0)
[2021-02-09 06:54] LABS: ALANINE AMINOTRANSFERASE 18 Units/L (12-78); ALKALINE PHOSPHATASE 189 Units/L (46-116); ASPARTATE AMINO TRANSFERASE 47 Units/L (15-37); BLOOD UREA NITROGEN 24 mg/dL (7-18); CHLORIDE 105 mmol/L (98-107); COR CA(FOR HYPOALB) 16.3 mg/dL (8.5-10.1); CREATININE 0.89 mg/dL (0.70-1.30); MAGNESIUM 1.7 mg/dL (1.7-2.9); SODIUM 140 mmol/L (136-145); TOTAL PROTEIN 5.4 g/dL (6.4-8.2); eGFR NON BLACK RACES > 60 (>60)
[2021-02-09 06:57] LABS: CALCIUM 14.7 mg/dL (8.5-10.1)
[2021-02-09 07:09] LABS: BAND NEUTROPHILS % 7 % (0-10); PLATELET MORPHOLOGY COMMENT NORMAL (NORMAL)
[2021-02-09] MEDS: MAGNESIUM SULFATE 1 GRAM/100 mL PREMIX 1 GM/100 ML BAG IV PRN ×2 (08:03→11:45)
[2021-02-09] MEDS ORDERED: LR 1000 ML IV 1,000 ML IV ONE ×2 (08:05→11:28)
[2021-02-09] MEDS: PROTONIX TAB 40 MG PO SCH (09:02)
[2021-02-09] MEDS: COLACE CAP 100 MG PO SCH (09:02)
[2021-02-09] MEDS: ASPIRIN EC 81 MG PO SCH (09:02)
[2021-02-09] MEDS: VIBRAMYCIN 100 MG in D5W 250 ML IV 250 ML IV SCH ×2 (09:05→21:00)
[2021-02-09] MEDS: PROVENTIL NEB TX 0.083% 2.5MG/ 3ML NEB SCH ×4 (09:20→20:54)
[2021-02-09] MEDS: Atrovent NEB TX 0.02% NEB SCH ×4 (09:20→20:54)
[2021-02-09] MEDS: MIACALCIN INJ SC SCH ×2 (10:07→21:48)
[2021-02-09] MEDS: ROXICODONE TAB 5 MG PO PRN ×2 (10:27→21:48)
[2021-02-09] MEDS ORDERED: MILK OF MAGNESIA PO PRN (12:10)
[2021-02-09] MEDS ORDERED: BUTT CREAM (COMPOUND) TOP PRN (12:39)
[2021-02-09] MEDS ORDERED: FLEET ENEMA ADULT ONE (13:29)
[2021-02-09] MEDS ORDERED: FLEET ENEMA ADULT PR PRN (14:19)
[2021-02-09] MEDS ORDERED: XYLOCAINE 1 % (PLAIN) ONE (14:36)
--- NOTE | 2021-02-09 15:15 | RAD ---
EXAM: CHEST X-RAYHISTORY: Central line placement. Increased weakness x5 days. Lung cancer.TECHNIQUE: PA and lateral chest x-ray.COMPARISON: Chest CT dated December 29, 2020.FINDINGS:There is a right subclavian central venous catheter with distal tip in distal SVC (adequate position). Recommend careful clinical correlation to ensure venous blood return.There is again evidence for a large left upper lobe/mediastinal/hilar soft tissue mass/neoplasm. The lung hudson and costophrenic angles are clear. There is no acute parenchymal infiltrate, pleural effusion, or pneumothorax seen. The visualized bony structures are within normal limits.IMPRESSION:1. Right subclavian central venous catheter with distal tip in distal SVC (adequate position). Recommend careful clinical correlation to ensure venous blood return.2. Again evidence for a large left upper lobe/mediastinal/hilar soft tissue mass/neoplasm.Electronically signed by: Angelo Walls (Feb 09, 2021 15:14:05)
[2021-02-09] MEDS: POTASSIUM CHL 60 MEQ/NS 0.45% 500 ML IV PRN (16:05)
[2021-02-10] MEDS: NS + KCL 20 MEQ/L 1,000 ML IV SCH ×4 (03:30→22:22)
[2021-02-10 06:27] LABS: BASOPHILS # (AUTO) 0.2 X10^3/uL (0.0-0.1); BASOPHILS % (AUTO) 1.2 % (0.2-1.0); EOSINOPHILS # (AUTO) 0.1 x10^3/uL (0.0-0.2); EOSINOPHILS % (AUTO) 0.7 % (0.9-2.9); HEMATOCRIT 32.6 % (42.0-54.0); HEMOGLOBIN 10.8 g/dL (13.5-18.0); LYMPHOCYTES # (AUTO) 0.3 X10^3/uL (1.3-2.9); LYMPHOCYTES % (AUTO) 1.9 % (21.0-51.0); MEAN CORPUSCULAR HEMOGLOBIN 27.4 pg (27.0-34.0); MEAN CORPUSCULAR HGB CONC 33.1 g/dL (33.0-35.0); MEAN CORPUSCULAR VOLUME 82.7 fL (80.0-100.0); MEAN PLATELET VOLUME 9.8 fL (7.4-11.0); MONOCYTES # (AUTO) 0.7 x10^3/uL (0.3-0.8); MONOCYTES % (AUTO) 4.3 % (0.0-13.0); NEUTROPHILS # (AUTO) 15.7 x10^3/uL (2.2-4.8); NEUTROPHILS % (AUTO) 91.9 % (42.0-75.0); PLATELET COUNT 200 X10^3/uL (150.0-450.0); RED BLOOD COUNT 3.94 X10^6/uL (4.7-6.0); RED CELL DISTRIBUTION WIDTH 15.9 % (11.6-16.5)
[2021-02-10 06:45] LABS: ALANINE AMINOTRANSFERASE 22 Units/L (12-78); ALBUMIN 2.1 g/dL (3.4-5.0); ALKALINE PHOSPHATASE 210 Units/L (46-116); ASPARTATE AMINO TRANSFERASE 48 Units/L (15-37); BLOOD UREA NITROGEN 20 mg/dL (7-18); CARBON DIOXIDE 28.2 mmol/L (21-32); CHLORIDE 106 mmol/L (98-107); COR CA(FOR HYPOALB) 16.3 mg/dL (8.5-10.1); CREATININE 0.86 mg/dL (0.70-1.30); SODIUM 139 mmol/L (136-145); TOTAL PROTEIN 5.6 g/dL (6.4-8.2); eGFR NON BLACK RACES > 60 (>60)
[2021-02-10 06:48] LABS: CALCIUM 14.8 mg/dL (8.5-10.1)
[2021-02-10 07:21] LABS: WHITE BLOOD COUNT 19.8 X10^3/uL (3.6-10.0)
[2021-02-10 07:25] LABS: BAND NEUTROPHILS % 8 % (0-10); PLATELET MORPHOLOGY COMMENT NORMAL (NORMAL)
[2021-02-10] MEDS: ASPIRIN EC 81 MG PO SCH (08:51)
[2021-02-10] MEDS: COLACE CAP 100 MG PO SCH (08:51)
[2021-02-10] MEDS: PROTONIX TAB 40 MG PO SCH (08:51)
[2021-02-10] MEDS: VIBRAMYCIN 100 MG in D5W 250 ML IV 250 ML IV SCH ×2 (08:51→22:17)
[2021-02-10] MEDS: Atrovent NEB TX 0.02% NEB SCH ×4 (09:06→21:17)
[2021-02-10] MEDS: AVELOX IV 400 MG/250 ML BAG 400 MG/250 ML PIGGYBACK IV SCH (09:17)
[2021-02-10] MEDS: PROVENTIL NEB TX 0.083% 2.5MG/ 3ML NEB SCH ×4 (10:57→21:17)
[2021-02-10] MEDS: MIACALCIN INJ SC SCH ×2 (12:56→22:19)
[2021-02-10] MEDS: ROXICODONE TAB 5 MG PO PRN ×2 (17:35→22:25)
[2021-02-10] MEDS: PERCOCET TAB 5/325 MG PO PRN (17:35)
[2021-02-10] MEDS ORDERED: LASIX IVP ONE (22:13)
[2021-02-10] MEDS ORDERED: LASIX ONE (22:18)
[2021-02-11 06:17] LABS: BASOPHILS # (AUTO) 0.1 X10^3/uL (0.0-0.1); BASOPHILS % (AUTO) 0.6 % (0.2-1.0); EOSINOPHILS # (AUTO) 0.1 x10^3/uL (0.0-0.2); EOSINOPHILS % (AUTO) 0.7 % (0.9-2.9); HEMATOCRIT 29.9 % (42.0-54.0); HEMOGLOBIN 9.9 g/dL (13.5-18.0); LYMPHOCYTES # (AUTO) 0.3 X10^3/uL (1.3-2.9); LYMPHOCYTES % (AUTO) 1.8 % (21.0-51.0); MEAN CORPUSCULAR HEMOGLOBIN 27.4 pg (27.0-34.0); MEAN CORPUSCULAR HGB CONC 33.2 g/dL (33.0-35.0); MEAN CORPUSCULAR VOLUME 82.4 fL (80.0-100.0); MEAN PLATELET VOLUME 9.2 fL (7.4-11.0); MONOCYTES # (AUTO) 0.9 x10^3/uL (0.3-0.8); MONOCYTES % (AUTO) 5.9 % (0.0-13.0); NEUTROPHILS # (AUTO) 13.6 x10^3/uL (2.2-4.8); PLATELET COUNT 228 X10^3/uL (150.0-450.0); RED BLOOD COUNT 3.62 X10^6/uL (4.7-6.0)
[2021-02-11 06:24] LABS: ALANINE AMINOTRANSFERASE 23 Units/L (12-78); ALBUMIN 2.2 g/dL (3.4-5.0); ALKALINE PHOSPHATASE 223 Units/L (46-116); ASPARTATE AMINO TRANSFERASE 44 Units/L (15-37); BLOOD UREA NITROGEN 17 mg/dL (7-18); CARBON DIOXIDE 29.2 mmol/L (21-32); CHLORIDE 105 mmol/L (98-107); COR CA(FOR HYPOALB) 15.4 mg/dL (8.5-10.1); CREATININE 0.98 mg/dL (0.70-1.30); SODIUM 137 mmol/L (136-145); TOTAL PROTEIN 5.6 g/dL (6.4-8.2); eGFR NON BLACK RACES > 60 (>60)
[2021-02-11] MEDS: PERCOCET TAB 5/325 MG PO PRN ×2 (07:25→22:50)
[2021-02-11] MEDS: ROXICODONE TAB 5 MG PO PRN ×2 (07:26→22:50)
[2021-02-11 08:00] LABS: BAND NEUTROPHILS % 4 % (0-10); PLATELET MORPHOLOGY COMMENT NORMAL (NORMAL)
[2021-02-11] MEDS: PROVENTIL NEB TX 0.083% 2.5MG/ 3ML NEB SCH ×4 (09:00→21:00)
[2021-02-11] MEDS: Atrovent NEB TX 0.02% NEB SCH ×4 (09:00→22:09)
--- NOTE | 2021-02-11 09:12 | RAD ---
HISTORYPNEUMONIA Relevant Clinical InformationSTUDYCHEST, 1 VIEWCOMPARISONAugust 2020FINDINGSThe patient is rotated. The cardiac silhouette is relatively stable. A known large left upper lobe/mediastinal/hilar mass is again demonstrated similar to prior exam. Correlation with nonemergent follow-up contrast-enhanced CT of the chest may be helpful if not already performed. A right-sided central venous catheter is again noted.IMPRESSIONLarge left upper lobe/mediastinal/hilar mass as noted above.Electronically signed by: BORIS PEÑA (Feb 11, 2021 09:10:07)
[2021-02-11] MEDS: AVELOX IV 400 MG/250 ML BAG 400 MG/250 ML PIGGYBACK IV SCH (09:44)
[2021-02-11] MEDS: COLACE CAP 100 MG PO SCH (09:45)
[2021-02-11] MEDS: PROTONIX TAB 40 MG PO SCH (09:45)
[2021-02-11] MEDS: ASPIRIN EC 81 MG PO SCH (09:45)
[2021-02-11] MEDS: VIBRAMYCIN 100 MG in D5W 250 ML IV 250 ML IV SCH ×2 (09:46→22:24)
[2021-02-11] MEDS: MAGNESIUM SULFATE 1 GRAM/100 mL PREMIX 1 GM/100 ML BAG IV PRN ×4 (11:22→19:02)
--- NOTE | 2021-02-11 11:55 | RAD ---
HISTORYPneumonia; abdominal pain Relevant Clinical InformationSTUDYACUTE ABDOMEN [id number]/12/2021FINDINGSMultiple surgical clips overlie the right upper quadrant. No signif icantly dilated bowel loops identified. Large amount of rectal stool. No gross free air. Previously n oted left lung mass is partially visualized.IMPRESSIONLarge rectal stool burden compatible with const ipation/impaction. No evidence for significant bowel obstruction.Electronically signed by: CLARIBEL JEFFERS (Feb 11, 2021 11:53:13)
[2021-02-12] MEDS: MAGNESIUM SULFATE 1 GRAM/100 mL PREMIX 1 GM/100 ML BAG IV PRN ×2 (00:59→02:30)
[2021-02-12] MEDS: POTASSIUM CHL 60 MEQ/NS 0.45% 500 ML IV PRN (01:11)
[2021-02-12] MEDS: NS + KCL 20 MEQ/L 1,000 ML IV SCH ×3 (07:52→14:05)
[2021-02-12 08:29] LABS: BASOPHILS # (AUTO) 0.1 X10^3/uL (0.0-0.1); BASOPHILS % (AUTO) 0.5 % (0.2-1.0); EOSINOPHILS # (AUTO) 0.1 x10^3/uL (0.0-0.2); EOSINOPHILS % (AUTO) 0.6 % (0.9-2.9); HEMATOCRIT 30.9 % (42.0-54.0); HEMOGLOBIN 10.3 g/dL (13.5-18.0); LYMPHOCYTES # (AUTO) 0.3 X10^3/uL (1.3-2.9); LYMPHOCYTES % (AUTO) 1.9 % (21.0-51.0); MEAN CORPUSCULAR HEMOGLOBIN 27.7 pg (27.0-34.0); MEAN CORPUSCULAR HGB CONC 33.3 g/dL (33.0-35.0); MEAN CORPUSCULAR VOLUME 83.1 fL (80.0-100.0); MEAN PLATELET VOLUME 9.1 fL (7.4-11.0); MONOCYTES # (AUTO) 0.9 x10^3/uL (0.3-0.8); MONOCYTES % (AUTO) 5.6 % (0.0-13.0); NEUTROPHILS # (AUTO) 14.3 x10^3/uL (2.2-4.8); NEUTROPHILS % (AUTO) 91.4 % (42.0-75.0); PLATELET COUNT 222 X10^3/uL (150.0-450.0); RED BLOOD COUNT 3.71 X10^6/uL (4.7-6.0); RED CELL DISTRIBUTION WIDTH 15.9 % (11.6-16.5); WHITE BLOOD COUNT 15.6 X10^3/uL (3.6-10.0)
[2021-02-12] MEDS: Atrovent NEB TX 0.02% NEB SCH ×3 (09:00→21:30)
[2021-02-12] MEDS: PROVENTIL NEB TX 0.083% 2.5MG/ 3ML NEB SCH ×3 (09:00→21:30)
[2021-02-12 09:04] LABS: BLOOD UREA NITROGEN 19 mg/dL (7-18); CARBON DIOXIDE 25.1 mmol/L (21-32); CHLORIDE 106 mmol/L (98-107); COR NA(FOR HYPERGLY) 139 mmol/L (136-145); CREATININE 1.05 mg/dL (0.70-1.30); SODIUM 138 mmol/L (136-145); eGFR NON BLACK RACES > 60 (>60)
[2021-02-12 09:07] LABS: CALCIUM 15.3 mg/dL (8.5-10.1)
[2021-02-12 09:10] LABS: BAND NEUTROPHILS % 1 % (0-10); PLATELET MORPHOLOGY COMMENT NORMAL (NORMAL)
[2021-02-12] MEDS: COLACE CAP 100 MG PO SCH (09:10)
[2021-02-12] MEDS: ASPIRIN EC 81 MG PO SCH (09:10)
[2021-02-12] MEDS: PROTONIX TAB 40 MG PO SCH (09:10)
[2021-02-12] MEDS: VIBRAMYCIN 100 MG in D5W 250 ML IV 250 ML IV SCH ×2 (09:10→22:50)
[2021-02-12] MEDS ORDERED: XYLOCAINE JELLY TOP ONE (11:12)
[2021-02-12] MEDS: ROXICODONE TAB 5 MG PO PRN ×2 (14:22→23:05)
[2021-02-12] MEDS ORDERED: AVELOX IV 400 MG/250 ML BAG 400 MG/250 ML PIGGYBACK IV SCH (21:00)
[2021-02-12] MEDS: PERCOCET TAB 5/325 MG PO PRN (23:05)
[2021-02-13] MEDS: NS + KCL 20 MEQ/L 1,000 ML IV SCH (04:43)
[2021-02-13 06:07] LABS: MAGNESIUM 2.4 mg/dL (1.7-2.9)
[2021-02-13] MEDS: ASPIRIN EC 81 MG PO SCH (09:05)
[2021-02-13] MEDS: PROTONIX TAB 40 MG PO SCH (09:05)
[2021-02-13] MEDS: COLACE CAP 100 MG PO SCH (09:05)
[2021-02-13] MEDS: VIBRAMYCIN 100 MG in D5W 250 ML IV 250 ML IV SCH (09:06)
[2021-02-13] MEDS: PROVENTIL NEB TX 0.083% 2.5MG/ 3ML NEB SCH ×2 (09:30→15:02)
[2021-02-13] MEDS: Atrovent NEB TX 0.02% NEB SCH ×2 (09:30→15:02)
--- NOTE | 2021-02-13 10:06 | RAD ---
HISTORYCONSTIPATIONSTUDYKUB x-ray one viewCOMPARISONX-ray 02/11/2021FINDINGSPrior cholecystectomy. Probable hepatomegaly. Bowel loops appear to be displaced out of the right upper quadrant region mild increased small and large bowel air is seen. There is moderate constipation in the rectum, minimally improved from prior study.IMPRESSIONPersistent rectal constipation with little interval improvement.Electronically signed by: Sumeet Hardy (Feb 13, 2021 10:03:23)
[2021-02-13 12:19] VITALS: BP 103/71
[2021-02-14 00:29] LABS: ALANINE AMINOTRANSFERASE 23 Units/L (12-78); ALBUMIN 2.4 g/dL (3.4-5.0); ALKALINE PHOSPHATASE 226 Units/L (46-116); ASPARTATE AMINO TRANSFERASE 51 Units/L (15-37); COR CA(FOR HYPOALB) 16.6 mg/dL (8.5-10.1); TOTAL PROTEIN 5.6 g/dL (6.4-8.2)
== END 2021-02-13 14:35 | disposition home or self-care (01) | DRG 641 ==
LOC: ER 12:49 → MED/SURG 18:43
PROVIDERS: ADMIT Obstetrics & Gynecology Obstetrics; ATTEND Obstetrics & Gynecology Obstetrics
DX: I87.2 Venous insufficiency (chronic) (peripheral); K56.41 Fecal impaction; I10 Essential (primary) hypertension; R10.9 Unspecified abdominal pain; E83.52 Hypercalcemia; J44.9 Chronic obstructive pulmonary disease, unspecified; E87.6 Hypokalemia; I95.9 Hypotension, unspecified; E86.0 Dehydration; Z20.822 Contact with and (suspected) exposure to COVID-19; Z87.891 Personal history of nicotine dependence; E11.9 Type 2 diabetes mellitus without complications; R79.89 Other specified abnormal findings of blood chemistry; C34.90 Malignant neoplasm of unspecified part of unspecified bronchus or lung